=== PATIENT | female | born 1955 | race Caucasian/White ===

== ENCOUNTER 2019-08-30 10:28 | Emergency (ER) | payer BC, SELFPAY ==
[2019-08-30 10:31] VITALS: BP 161/81; PULSE 89; RESP 16; TEMP 36.3; O2SAT 100
--- NOTE | 2019-08-30 10:43 | W.ED.GENAD ---
Discharge Plan Disposition Patient Disposition: HOME Condition: Stable Discharge Details Chief Complaint: Palpitatns Clinical Impression: Syncope Primary Care Provider: Audrey Argueta ED Provider: Josep Nieves Home Meds and New Rx's Prescriptions: No Action No Known Home Meds RF: 0 Discharge Instructions Instructions: Syncope (ED) Additional Instructions: follow up with your primary care provider within 1 week if you feel more ill, have chest pain/pressure or difficulty breathing return to the emergency department Medical Decision Making 64 yo female who states she has a hx of svt otherwise no medical problems and not on any meds, no history of smoking alcohol or drug use, comes in after she felt her heart racing similar to prior episodes of svt. She states she was sitting and started to do carotid massage and holding her breath which did not relieve the sensation of her heart beating fast. She decided she would try cold water so stood up and when she stood after carotid massage she felt dizzy then had brief syncope. She denies ever having any chest pressure or pain or dyspnea and currently feels well without complaints. HAs no leg swelling, no calf pain no jvd speaking in full sentences on exam. Suspect she had a vasovagal mediated syncope based on history. Will obtain ecg, lab work and keep on monitor. She had no chest pain or pressure, no hypoxia no calf pain so doubt entities such as acs, PE or dissection labs unremarkable and remains asymptomatic at this present time and normal tele. Discussed likely vasovagal and patient is comfortable with d/c and f/u with pcp and return precautions given Differential Diagnosis Differential Diagnosis: svt, vasovagal, electrolyte abnormality Lab Data Lab results reviewed: Yes I reviewed the patient's lab results. ECG Data Attestation: I personally reviewed and interpreted this ECG (s) as follows: Prior ECG tracings: not available for review Interpretation: sinus rhythm, rate of 80, pr 142, qtc 434 HPI General Mode of arrival: ambulatory. Date/Time Provider Initiated Documentation: 08/30/19 10:29. Limitations to Documentation: no limitations. Information obtained by: patient. History of Present Illness 64 year old F presents to the emergency department with the chief complaint of palpitations, described as moderate, No relieving factors improve symptom(s), No exacerbating factors reported . Patient did receive the following treatments prior to arrival, none Related Data Home Medications Medication Instructions Recorded Confirmed Unknown [No Known Home Meds] 08/30/19 08/30/19 Allergies Allergy/AdvReac Type Severity Reaction Status Date / Time No Known Allergies Allergy Unverified 08/30/19 10:35 General Stated Complaint: Palpitatns KASHIF: 3 Review of Systems All systems reviewed & are unremarkable except as noted in HPI and below Constitutional Constitutional: Denies chills, Denies fever(s) and Denies weakness Cardiovascular Cardiovascular: Denies chest pain and Denies dyspnea Respiratory Respiratory: Denies cough and Denies dyspnea Gastrointestinal Gastrointestinal: Denies abdominal pain, Denies nausea and Denies vomiting Integumentary/Breasts Skin/Breast: Denies rash Neurologic Neurologic: Denies weakness Psychiatric Psychiatric: Denies depression [facility] Social History Smoking/Tobacco Use Status: Never Alcohol Intake: never Drug use: Never Substance use type: does not use Do you feel safe at home: Yes Do you feel safe in your relationship?: Yes Exam Const General: no acute distress Orientation: alert HENMT Head: normal to inspection Ears: external ears normal General nose exam: external nose normal Mouth: moist mucous membranes Eyes General: appearance normal, both eyes and all related structures Neck Neck: normal visual inspection Resp Effort & Inspection: normal respiratory effort and able to speak in complete sentences Cardio Rate: regular rate Skin General skin exam: no rashes or lesions noted Neuro General: patient alert and patient oriented x3 Extrem General: normal to inspection Psych Mental Status: mental status grossly normal Course Vital Signs Vital signs: Vital Signs Temperature 36.3 C L 08/30/19 10:31 Pulse 89 08/30/19 10:31 Respiratory Rate 16 08/30/19 10:31 Blood Pressure 161/81 H 08/30/19 10:31 Pulse Oximetry 100 08/30/19 10:31 Temperature 36.3 C L 08/30/19 10:31 Temperature Source Tympanic 08/30/19 10:31 Pulse 89 08/30/19 10:31 Respiratory Rate 16 08/30/19 10:31 Respiratory Effort Non-Labored 08/30/19 10:35 Blood Pressure 161/81 H 08/30/19 10:31 Blood Pressure Position Sitting 08/30/19 10:31 Pulse Oximetry 100 08/30/19 10:31 Oxygen Delivery Method Room Air 08/30/19 10:31 Oxygen Flow Rate 0 08/30/19 10:31 Pain Level 0 08/30/19 10:31
[2019-08-30 10:53] LABS: Abs Immature Grans 0.01 k/cumm (0.0-0.09); Absolute Basophil Count 0.03 k/cumm (0.0-0.2); Absolute Eosinophil Count 0.08 k/cumm (0.0-0.7); Absolute Monocyte Count 0.57 k/cumm (0.11-0.7); Absolute Neutrophil Count 4.67 k/cumm (1.2-6.7); Basophils % 0.4; Eosinophils % 1.1; HCT 41.1 % (36.0-46.0); HGB 13.9 g/dL (12.0-15.5); Immature Grans % 0.1 %; Lymphocytes % 25.1; Mean Corp. HGB Concentration 33.8 g/dL (32.0-36.0); Mean Corpuscular Hemoglobin 30.2 pg (27.0-33.0); Mean Corpuscular Volume 89.2 fL (80-95); Mean Platelet Volume 9.2 fL (8.0-11.0); Neutrophils % 65.3; Platelet Count 301 x1000/uL (130-400); RBC 4.61 m/cumm (4.00-5.20); RBC Distribution Width 13.4 % (11.7-14.6); White Blood Cell Count 7.16 k/cumm (4.4-10.8)
[2019-08-30 11:09] LABS: ALT 24 U/L (14-59); AST 18 U/L (15-37); Albumin 4.4 g/dL (3.4-5.0); Alkaline Phosphatase 78 U/L (46-116); Anion Gap 11.5 mmol/L (3-11); BUN 18 mg/dL (7-18); Bilirubin, Total 0.6 mg/dL (0.2-1.0); CO2 25.5 mmol/L (21.0-32.0); CREATININE 0.71 mg/dL (0.55-1.02); Chloride 104 mmol/L (98-107); Glucose 111 mg/dL (74-106); Potassium 3.4 mmol/L (3.5-5.1); Sodium 141 mmol/L (136-145); Total Protein 7.7 g/dL (6.4-8.2); Troponin I < 0.05 ng/Ml (<0.06)
[2019-08-30 11:23] VITALS: BP 119/75; PULSE 68; RESP 16; TEMP 36.8; O2SAT 99
== END 2019-08-30 11:25 | disposition home or self-care (01) ==
PROVIDERS: Emergency Provider Emergency Medicine; PCP Physician Assistant Medical
DX: R55 Syncope and collapse
CPT/HCPCS: 36415; 80053; 93005; 99284; 83735; 84484; 85025; 93010

== ENCOUNTER → 2022-04-21 02:26 | Outpatient (CLI) | payer MEDICARE, SELFPAY ==
--- NOTE | 2022-04-21 17:00 | DI.MAMMO_ITS ---
Exam(s) MAMMO SCREENING EXAM: MAMMO SCREENING CLINICAL HISTORY: SCREENING, Z12.31, BASELINE TECHNIQUE: Bilateral full field digital CC and MLO mammographic images were obtained with 3D tomosyn thesis and utilizing computer aided detection (CAD). COMPARISON: None. FINDINGS: Masses/Architectural Distortion: None seen. Microcalcifications: No suspicious pleomorphic-type are seen. Skin Thickening/Nipple Retraction: None. IMPRESSION: 1. No significant interval change with no specific features of malignancy noted. 2. Unless there is more urgent need, screening mammography is recommended, as per [place] [employer] guidelines. BI-RADS Category 1 - Negative Breast Density - Category C - Heterogeneously dense Breast density category C or D implies that the patient has dense breast tissue. Dense breast tissue is very common and is not abnormal but dense breast tissue can make it harder to find cancer on a ma mmogram. Also, dense breast tissue may increase their breast cancer risk. This information about the result of the mammogram report was provided to the patient to raise their awareness. Use this report when you speak with the patient about their risks for breast cancer, which includes their family hist ory. At that time, you may recommend for more screening tests (Ultrasound or MRI) as they might be us eful based on their risk. A negative radiographic report should not delay biopsy if a dominant or clinically suspicious mass is present. Up to ten percent of cancers are not identified on mammography. A negative report may reinforce clinical impression. Adenosis and dense breasts may obscure an underlying neoplasm. False positive reports average 6 to 10%. Patient will receive a letter notifying them of these results.
== END ==
PROVIDERS: PCP Physician Assistant Medical; Visit Provider Physician Assistant Medical
DX: Z12.31 Encounter for screening mammogram for malignant neoplasm of breast (principal); R92.8 Other abnormal and inconclusive findings on diagnostic imaging of breast
CPT/HCPCS: 77063; 77067

== ENCOUNTER 2022-10-21 01:30 | Outpatient (CLI) | payer MEDICARE, SELFPAY ==
--- NOTE | 2022-10-21 06:45 | DI.MRI_ITS ---
Exam(s) MR IAC BRAIN WO/W EXAM: MR IAC BRAIN WO/W CLINICAL HISTORY: Asymmetrical hearing loss,h90.3. TECHNIQUE: Multiplanar multisequence MRI of the brain and internal auditory canals was performed. CONTRAST MATERIAL: IV Contrast: 11 mL of Dotarem contrast administered. COMPARISON: CT HEAD WITHOUT CONTRAST from 10/05/2011 FINDINGS: VENTRICLES AND EXTRA AXIAL SPACES: Normal in size and morphology for the patient's age. HEMORRHAGE: None. CEREBRAL PARENCHYMA: No focus of restricted diffusion to suggest acute infarct. No space-occupying le calixto identified. MIDLINE SHIFT: None. BRAINSTEM/CEREBELLUM: Normal. CALVARIUM: Normal. ENHANCEMENT: No suspicious enhancement identified. VISUALIZED PARANASAL SINUSES/MASTOIDS: There is a small mucous retention cyst or polyp in the left ma xillary sinus and the sphenoid sinus. The sinuses are otherwise clear as are the mastoid air cells. GAMBELL OF SMITH: Normal flow void. PITUITARY GLAND: Unremarkable. IAC/CP ANGLE: The internal auditory canals are within normal limits. The cerebellar pontine angles ar e unremarkable. No enhancing lesions are seen. Visualized portion of the facial nerves appear within normal limits. OTHER FINDINGS: None. IMPRESSION: Unremarkable MRI of the brain and internal auditory canals. DATA REPOSITORY:
[2022-10-21 08:35] LABS: CREATININE 0.6 mg/dL (0.55-1.02); Estimated GFR 98.32 (mL/min/1.73m2)
[2022-10-21] MEDS: Gadoterate meglumine 20 ML VIAL IVP (08:56)
[2022-10-21] MEDS: Normal Saline Flush 10 ML SYR IVP (08:58)
== END 2022-10-21 01:50 ==
LOC: DI 01:30
PROVIDERS: PCP Physician Assistant Medical; Visit Provider Registered Nurse Maternal Newborn
DX: H90.3 Sensorineural hearing loss, bilateral (principal)
CPT/HCPCS: 70553; 82565

== ENCOUNTER 2023-04-04 04:18 | Outpatient (CLI) | payer MEDICARE, SELFPAY ==
[2023-04-04 08:10] LABS: Calculated LDL 128 mg/dL (<100); Cholesterol 207 mg/dL (<200); HDL Cholesterol 64 mg/dL (40-60); Triglyceride 79 mg/dL (<150)
== END 2023-04-04 04:19 | disposition home or self-care (01) ==
LOC: LBO 04:18
PROVIDERS: PCP Nurse Practitioner Adult Health; Referring Provider Nurse Practitioner Adult Health; Visit Provider Nurse Practitioner Adult Health
DX: E78.89 Other lipoprotein metabolism disorders (principal)
CPT/HCPCS: 36415; 80061

== ENCOUNTER → 2023-05-12 00:25 | Outpatient (CLI) | payer MEDICARE, SELFPAY ==
--- NOTE | 2023-05-12 08:30 | DI.MAMMO_ITS ---
Exam(s) MAMMO SCREENING EXAM: MAMMO SCREENING CLINICAL HISTORY: screening,z12.39 TECHNIQUE: Mammograms were interpreted according to the usual protocol including computer analysis w [employer] CAD system, tomosynthesis and C-view imaging. COMPARISON: 2021 FINDINGS: The breasts are composed of heterogeneously dense fibroglandular densities, Breast Density category C . No suspicious masses or suspicious microcalcifications are seen. No skin thickening or abnormal axillary lymph nodes are seen. There has been no significant change from prior exams. IMPRESSION: BI-RADS Category 1, Negative mammogram. Yearly screening mammography is recommended. Breast Density Category C, heterogeneously Dense. The mammogram demonstrates the patient's breast tissue is dense. Dense breast tissue is very common a nd is not abnormal but dense breast tissue can make it harder to find cancer on a mammogram. Also, de nse breast tissue may increase breast cancer risk. This information about the result of the mammogram report was provided to the patient to raise their awareness. Use this report when you speak with the patient about their risks for breast cancer, which includes their family history. At that time, you may recommend additional screening tests (Ultrasound or MRI) as they might be useful based on their r isk. A negative radiographic report should not delay biopsy if a dominant or clinically suspicious mass is present. Up to ten percent of cancers are not identified on mammography. A negative report may reinforce clinical impression. Adenosis and dense breasts may obscure an underlying neoplasm. False positive reports average 6 to 10%.
== END ==
PROVIDERS: PCP Nurse Practitioner Adult Health; Visit Provider Nurse Practitioner Adult Health
DX: Z12.31 Encounter for screening mammogram for malignant neoplasm of breast (principal)
CPT/HCPCS: 77063; 77067